=== PATIENT | female | born 1980 | race Caucasian/White ===

== ENCOUNTER 2018-06-05 05:59 | Day surgery (SDC) | payer MEDICAID ==
--- NOTE | 2018-06-04 06:25 | PREOPHP ---
DATE OF ADMISSION: 06/05/2018 DATE OF SURGERY: 06/05/2018. HISTORY OF PRESENT ILLNESS: The patient is a 37-year-old female in overall good health who presented several months ago with pain in the left breast with findings of a nodule at the periphery upper out er quadrant at 10 o'clock near the axilla, especially with the patient supine. Ultrasound revealed f indings consistent with lipoma. The patient was treated with vitamin E for mastodynia, but localized pain has persisted and she is going to undergo excision of this nodule. PAST MEDICAL HISTORY: None. MEDICATIONS: None. ALLERGIES: NONE. OPERATIONS: None. She is nulliparous. She states she underwent menopause at age 23. PHYSICAL EXAMINATION: The patient is 4 foot 11 inches, 126 pounds. HEENT: Within normal limits. LUNGS: Clear. HEART: Regular rhythm. BREASTS: The breasts are large. Right breast is unremarkable. Left breast reveals a 1 cm hard nodu le at 10:00 at the periphery of the breast. There is no palpable axillary, supraclavicular lymphaden opathy. ABDOMEN: Soft. PELVIC AND RECTAL: Per primary care doctor. EXTREMITIES: Without edema. NEUROLOGIC: Physiologic. IMPRESSION: Painful nodule, left breast. PLAN: Excision of painful nodule. I had a full discussion with the patient regarding the nature of her condition and the nature of the surgery, indications, alternatives, options and risks including b leeding, infection, need for additional surgery based on final pathology, scarring, deformity, etc. All questions have been answered. She understands and agrees to proceed. Dictated By: CORONA MONTES/KAIH Conf#: [id number] DID#: [id number]
[~2018-06-05] VITALS: Ht 149.9 cm; Wt 55.4 kg
[2018-06-05] VITALS (10 sets, daily range): BP systolic 100–123; BP diastolic 55–82; PULSE 70–94; RESP 11–27; Ht 149.9 cm; Wt 55.4 kg
[2018-06-05] MEDS ORDERED: CEFAZOLIN 1 GM/50 ML (PMX) 50 ML IVPB ONE (06:00)
[2018-06-05] MEDS ORDERED: SOD CHLORIDE 0.9% 1,000 ML IV SCH (06:00)
[2018-06-05] MEDS ORDERED: BUPIVACAINE 0.5%/EPI (SDV) 30 ML INJ ONE (06:44)
--- NOTE | 2018-06-05 07:03 | PREAC ---
Date/Time of Note Date/Time of Note DATE: 06/05/18 TIME: 07:02 Anesthesia Eval and Record Evaluation Time Pre-Procedure Interview DATE: 06/05/18 TIME: 07:02 Age 37 Sex female NPO: 8 hrs Preoperative diagnosis L breast nodule Planned procedure Excision of L breast mass Past Medical History Past Medical History: None Surgery & Anesthesia Issues No known issue Meds Anticoagulation: No Beta Elizabeth within 24 hr: No Reason Beta Elizabeth not given: Pt. not on B-Elizabeth No Active Prescriptions or Reported Meds Current Medications Sodium Chloride 1,000 ml @ 75 mls/hr [id number] IV ; Start 06/05/18 at 06:00; Stop 06/05/18 at 19:19 Meds reviewed: Yes Allergies Coded Allergies: No Known Allergy (Unverified , 06/05/18) Allergies Reviewed: Yes Labs/Studies Labs Reviewed: Reviewed by anesthesiologist test: Negative Pre-procedure Exam Last vitals Vital Signs Date Temp Pulse Resp B/P (MAP) Pulse Ox O2 O2 Flow FiO2 Time Delivery Rate 06/05/18 97.8 88 18 109/75 98 Room Air 06:52 (86) Airway: Adequate mouth opening, Adequate thyromental dist Mallampati: Mallampati II Teeth: Normal Lung: Normal Heart: Normal ASA Physical Status ASA physical status: 1 Emergency: None Planned Anesthetic General/MAC: LMA Pre-operative Attestations Prior to commencing anesthesia and surgery, the patient was re-evaluated, there was verification of: *The patient's identity *The results of appropriate recent lab work and preoperative vital signs *The above evaluation not changing prior to induction *Anesthetic plan, risk benefits, alternative and complications discussed with patient/family; questions answered; patient/family understands, accepts and wishes to proceed. TOY RANDOLPH Jun 05, 2018 07:03
--- NOTE | 2018-06-05 07:12 | HPN ---
Date/Time of Note Date/Time of Note DATE: 06/05/18 TIME: 07:12 Interval H&P Admission Note Pt. seen H&P reviewed: No system changes CORONA VILLASEÑOR Jun 05, 2018 07:12
[2018-06-05] MEDS ORDERED: ONDANSETRON 4 MG INJ IV PRN (07:30)
[2018-06-05] MEDS ORDERED: ALBUTEROL 0.083% (NEB) 2.5 MG/3 ML AMP HHN PRN (07:30)
[2018-06-05] MEDS ORDERED: DIPHENHYDRAMINE 50 MG INJ IV PRN (07:30)
[2018-06-05] MEDS ORDERED: FENTAnyl 50 MCG/ML VIAL IV PRN ×2 (07:30)
[2018-06-05] MEDS ORDERED: HYDROmorphONE 1 MG/5 ML IV SYRINGE IV PRN ×2 (07:30)
[2018-06-05] MEDS ORDERED: OXYCODONE/ACETAMINOPHEN (5/325) TAB PO PRN ×2 (07:30)
[2018-06-05] MEDS ORDERED: MEPERIDINE 25 MG INJ IV PRN (07:30)
[2018-06-05] MEDS ORDERED: FAMOTIDINE 20 MG INJ ONE (07:32)
[2018-06-05] MEDS ORDERED: PROPOFOL 40 ML ONE (07:32)
[2018-06-05] MEDS ORDERED: LIDOCAINE 2% (SDV) 5 ML INJ ONE (07:32)
[2018-06-05] MEDS ORDERED: CEFAZOLIN 1 GM INJ ONE (07:32)
[2018-06-05] MEDS ORDERED: MIDAZOLAM 1 MG/ML 2 ML INJ ONE (07:32)
[2018-06-05] MEDS ORDERED: FENTAnyl 50 MCG/ML VIAL ONE (07:32)
[2018-06-05] MEDS ORDERED: ONDANSETRON 4 MG INJ ONE (07:33)
[2018-06-05] MEDS ORDERED: DEXAMETHASONE 4 MG/ML 5 ML INJ ONE (07:33)
[2018-06-05] MEDS ORDERED: BUPIVACAINE 0.5% (SDV) 30 ML INJ ONE ×2 (07:47→08:16)
[2018-06-05] MEDS ORDERED: ESMOLOL 10 ML ONE (07:51)
--- NOTE | 2018-06-05 08:18 | SIPON ---
Date/Time of Note Date/Time of Note DATE: 06/05/18 TIME: 08:16 Operative Report Preoperative Diagnosis painful nodule left breast, likely lipoma Postoperative Diagnosis same Operation/Procedure Performed excision of nodule left breast Surgeon see signature line assistant engineer none Anesthesia: general Estimated blood loss: none Transfusion Required none Specimen left breast nodule Grafts/Implants none Complications none CORONA VILLASEÑOR Jun 05, 2018 08:18
--- NOTE | 2018-06-05 08:22 | PAC ---
Date/Time of Note Date/Time of Note DATE: 06/05/18 TIME: 08:20 Post-Anesthesia Notes Post-Anesthesia Note Last documented vital signs Vital Signs Date Temp Pulse Resp B/P (MAP) Pulse Ox O2 O2 Flow FiO2 Time Delivery Rate 06/05/18 98 99 18 119/73 98 face mask [id number] Activity: WNL Respiratory function: WNL Cardiovascular function: WNL Mental status: Baseline Pain reasonably controlled: Yes Hydration appropriate: Yes Nausea/Vomiting absent: Yes TOY RANDOLPH Jun 05, 2018 08:22
--- NOTE | 2018-06-05 08:58 | OPR ---
DATE OF OPERATION: 06/05/2018 SURGEON: Corona Valle MD PIT RECORDER: CHRISSY Betancur. PREOPERATIVE DIAGNOSIS: Painful nodule left breast, probable lipoma. POSTOPERATIVE DIAGNOSIS: Painful nodule left breast, probable lipoma. OPERATION PERFORMED: Excisional biopsy of painful nodule left breast. DESCRIPTION OF PROCEDURE: The patient was taken to the operating room and under general anesthesia, with sequential compression device stockings in place, she was prepped and draped in the usual fashion. The lesion was located in the 10 o'clock position near the periphery of her left breast. A transverse curvilinear incision was made, achieving hemostasis with cautery. Flaps were dissected circumferentially a short distance. The palpable abnormality felt like a lipoma. It was excised with cautery, and an additional palpable abnormality removed as well. Hemostasis was carefully secured with cautery; 0.5% Marcaine plain was infiltrated in the skin incision. The incision was closed with interrupted 3-0 Vicryl, deep dermal subcutaneous sutures followed by continuous 4-0 Monocryl subcuticular suture. Tincture of benzoin and 1/2-inch Steri-Strips were applied, followed by dry sterile dressing. Final sponge and needle counts were correct. The patient tolerated the procedure well and left the operating room in good condition. Dictated By: CORONA MONTES/KIAH Conf#: [id number] DID#: [id number] MTDD
== END 2018-06-05 10:10 | disposition home or self-care (01) ==
LOC: SDS 05:59
PROVIDERS: ATTEND Surgery
DX: D17.39 Benign lipomatous neoplasm of skin and subcutaneous tissue of other sites (principal)
CPT/HCPCS: 19120; 88307; J0690; J1100; J1170; J2250; J2405; J3010; Z7610